=== PATIENT | male | born 1950 | race Caucasian/White ===

== ENCOUNTER 2023-01-05 10:44 | Outpatient (CLI) | payer MEDICARE ==
--- NOTE | 2023-01-12 23:21 | P.PCN ---
Date of Procedure: 01/05/23 Operative Findings: Home sleep study report Date of services 01/05/2023 Pertinent history a very pleasant 71-year-old male patient referred to me for sleep apnea. The patient has been seen through our sleep centers, I believe the one out of [place], and the patient was diagnosed having obstructive sleep apnea and he was given a CPAP unit approximately 2 years ago. He was having difficulties with chronic atrial fibrillation. The patient is under the care of Dr. Thiago Nesbitt and he also has seen the electrophysiology department at [facility]. The patient was given various medical treatments and cardiac ablations and the patient is currently in normal sinus rhythm. This seems evaluation was initially recommended to him by his director process improvement at [facility]. In summary, the patient underwent a screening polysomnography. The reports are not available. Nevertheless, he was told to have sleep apnea and he was given a newer generation ResMed 11 which is currently set at a pressure of 15 cm of water. He was also given a full facemask. Over the past 2 years, the patient difficulties achieving compliancy. He was unable to tolerate the treatment. He was unable to achieve usage of more than 4 hours. His compliancy gradually faded and is currently not using the machine on a regular basis. Nevertheless, he tells me that he has not seen a major difference in his overall daytime functionality while off or on treatment. The patient has limited soft snoring. He goes to bed between 9 PM/11 PM and wakes up between 7-8 AM in the morning. He feels refreshed. He denies waking up choking or gasping for air. No nighttime chest pain or shortness of breath or heartburn. No sleepwalking. No sleep talking. No RLS lower extremities. No excessive daytime hypersomnia or sleepiness. Does not fall asleep while driving and he is never been involved in a motor vehicle accident because of feeling drowsy or sleepy. Drinks wine occasionally. No substance abuse. No alcoholism. No head trauma. No facial deformities. He has gained approximately 15 pounds over the past 2 years and he attributes this to a trip that he took recently. Pertinent physical findings The patient has a longer pounds with a body mass index of 27.9 Technical description The ResMed apnea link system was used to complete this sleep study. This is a type III home sleep study. The total recording duration was 8 hours and 27 minutes. The study started at 10:53 PM and the study ended at 7:20 AM. This was an adequate study as the patient had more than 8 hours of flow and oxygen saturation monitoring. Results The respiratory analysis showed a total of 36 obstructive apneas, 25 central apneas, 9 mixed apneas and 96 obstructive hypopneas. This resulted into an AHI of 23 consistent with moderately severe disease Oxygenation analysis This patient had total 159 oxygen desaturations with a pulse ox dropped by more than 4%. The minimum recorded pulse ox was 80%. This patient spent approximately 15 minutes of sleep time at a pulse ox of less than 89% and this accounted for 3% of the overall sleep time. Cardiac summary Average heart rate was 49, minimum heart rate was 40 and a maximum heart rate was 86 Assessment Sleep apnea predominantly obstructive with a component of mild central sleep apnea probably related to his cardiac disease and the patient had an AHI of 23.0 Mild nocturnal oxygen desaturations Failed CPAP therapy in the past Plan We'll discuss the findings with the patient. Obviously the patient does have an underlying sleep apnea which is under moderate severity. If he shows commitment and willingness, the patient will be offered an in lab CPAP titration to evaluate his overall clinical response and tolerability to the treatment. This will be discussed with the patient and final recommendation will be made. My recommendation is to proceed with CPAP therapy and for that reason and due to the presence of some central apneas, recommending a in lab CPAP titration in the sleep center.
== END 2023-01-06 23:59 | disposition home or self-care (01) ==
LOC: 3 N SLEEP 10:44 → EDSTATUS 11:00 → 3 N SLEEP 01-06 10:09
PROVIDERS: ATTEND Internal Medicine Critical Care Medicine
DX: G47.33 Obstructive sleep apnea (adult) (pediatric) (principal); I48.20 Chronic atrial fibrillation, unspecified; Z99.89 Dependence on other enabling machines and devices